=== PATIENT | female | born 1945 | race Caucasian/White ===

== ENCOUNTER 2018-10-04 08:53 | Observation (INO) ==
[2018-10-04] MEDS ORDERED: Naloxone 0.4 MG/ML INJ IVP PRN (11:03)
--- NOTE | 2018-10-04 11:10 | Cardiology History & Physical ---
<Jered Hall R - Last Filed: 10/04/18 11:07> Date of Encounter: 10/04/18 Time of Encounter: 11:05 Assessment and Plan (1) Chest pain Current Visit: Yes Status: Acute Per Cardiology: Developed continuous chest pain with significant ST depression and bigeminy during dobutamine stress echo of which could not be completed. Reports history of catheterization many years ago with no stents, however no records noted. Had negative stress echo a few years ago. Chest pain symptoms have somewhat improved. ECG improving as well. Per Dr. Carlson, EF remains preserved on echo during chest pain symptoms. Directly admitting for catheterization today. Labs pending. On aspirin, statin, beta sara at home-- will resume meds once med rec completed. Patient and ex- verbalized understanding and agreed with plan. The assessment and plan as outlined above was discussed with the patient and/or family members who expressed understanding and agreement. All questions were answered. Qualifiers: Qualified Code(s): R07.9 - Chest pain, unspecified History of Present Illness Chief complaint: CP HPI: Ms. Duke is a 72 year old female seen by Dr. Turner 08/10/2018 with a relevant past medical history of HTN, GERD, Parkinson's disease. Stress test ordered per Dr. Turner at that time. Patient seen today during stress test was ordered for stress echocardiogram with order being switched to dobutamine stress echo by Dr. Turner. Patient developed significant ST depression with bigeminy during Dobutamine stress echo. Patient did develop chest pain with peak of about 8 out of 10 with left arm pain as well and nausea. Patient did receive NC O2 and a total of 3 SL nitroglycerin with some relief to 6 out of 10. Systolic blood pressures remained stable. Dobutamine infusion discontinued-- of note did not achieve target heart rate and atropine was not given. Dr. Carlson notified and at bedside. EF remained preserved during chest pain per Dr. Carlson. Discussed with patient and ex- and agreeable to direct admission for catheterization today. Past Med Surg Social Fam HX - Past Medical History Attestation: Yes The following information was validated with the patient. Source: patient, old records reviewed, obtained from family Medical history: arthritis, cancer, GERD, hypertension, osteoporosis, other Additional medical history: Parkinsons Psychiatric history: depression - Past Surgical History Surgical History: cancer surgery, cholecystectomy, hysterectomy Additional surgical history: brain sx - Social History Smoking Status: Never smoker Smokeless Tobacco Status: No Alcohol use: none Drug use: none Medications and Allergies Atorvastatin [Lipitor] 40 mg PO HS 07/01/16 [History] Carbidopa/Levodopa [Carbidopa-Levodopa 25-100 Tab] 1 tab PO TID 07/01/16 [History] Enalapril Maleate [Vasotec] 2.5 mg PO DAILY 07/01/16 [History] Gabapentin [Neurontin] 300 mg PO BID 07/01/16 [History] Gluc/Louie-MSM#1/C/Madhu/Kody/Bor [Osteo Bi-Flex Caplet] 1 tab PO DAILY 07/01/16 [History] HydrOXYzine 10 mg PO DAILY PRN 07/01/16 [History] Omeprazole [PriLOSEC] 20 mg PO BIDAC 07/01/16 [History] Pramipexole [Mirapex] 1.5 mg PO TID 07/01/16 [History] Sertraline [Zoloft] 100 mg PO DAILY 07/01/16 [History] Tizanidine HCl 2 mg PO Q12H PRN 07/01/16 [History] HYDROcodone/Acet 5/325 mg [Pembroke 5-325 mg] 1 tab PO Q6H PRN 3 Days #7 tab 07/08/17 [Rx] Ondansetron ODT [Zofran ODT] 4 mg SL Q8HR PRN #21 tab.rapdis 11/25/17 [Rx] Sulfamethoxazole/Trimeth DS [Bactrim DS] 1 each PO BID #6 tablet 11/25/17 [Rx] Tamsulosin [Flomax] 0.4 mg PO DAILY #5 cap.er.24h 11/25/17 [Rx] Allergy/AdvReac Type Severity Reaction Status Date / Time Amoxicillin Allergy Rash Verified 07/08/17 08:52 pregabalin [From Lyrica] Allergy Rash Verified 07/08/17 08:52 All Systems Review: The remainder of the systems were reviewed and are negative - Cardiovascular Cardiovascular: as per HPI, chest pain at rest, radiating jaw, neck or arm pain - Gastrointestinal Gastrointestinal: nausea Physical Examination stable; stress lab systolic blood pressure 128/86 and heart rate 59. General: Conversant, No Apparent Distress HEENT: Atraumatic, Normocephaly, Mucus Membranes Moist Neck: No JVD, Normal carotid pulses Cardiac: Reg Rate and Rhythm, Normal S1 and S2, No Murmur Lungs: Normal Breath Sounds, No Wheeze, Rales, Rhonchi Neuro: Alert and responsive, No focal deficits noted Abdomen: Soft, Non-Tender Skin: No rashes noted on visualized skin Musculoskeletal: No Chest Wall Tenderness Extremities: No Clubbing, No Cyanosis, No Edema, Normal Pulses Results - Imaging and Cardiology Stress Test: pending - EKG Interpretation EKG results cardiology: personally reviewed <Shiloh Carlson - Last Filed: 10/04/18 12:33> Date of Encounter: 10/04/18 - Attending Attestation I examined this patient and my medical decision-making was reviewed with the [employer]. I agree with the documented findings, disposition and treatment plan as described. Ms. Duke presented today for an outpatient stress test. Patient developed chest pain symptoms with ECG changes during dobutamine stress echo. Stress images were not optimal due to failure to achieve target heart rate. No obvious SWMA during symptoms of active chest pain. Risk factors for CAD include HTN, HPL per medical records. Patient has Parkinsonism but is alert and oriented x3 competent to make decisions. Given chest pain symptoms, abnormal ECG changes during stress and risk factors, recommend hospital admission for [facility]. The R/B/A of proceeding were discussed with the patient. She expressed understanding and consented. Will need labs pre-cath. History of Present Illness HPI: Ms. Duke is a 72 year old female All Systems Review: The remainder of the systems were reviewed and are negative Physical Examination Vital Signs, Last 4 Hours Temp Pulse Resp BP Pulse Ox 10/04/18 11:33 97.7 F 60 16 112/73 98 Results 10/04/18 11:27 10/04/18 11:27 Lab Results 10/04/18 10/04/18 10/04/18 11:27 11:27 11:27 WBC 6.2 Hgb 12.1 Hct 38.6 Plt Count 162 INR 1.1 Sodium 140 Potassium 4.3 Chloride 104 Carbon Dioxide 29 BUN 16 Creatinine 0.67 Glucose 127 H Calcium 9.0 Troponin I 0.26 H*
[2018-10-04 11:40] LABS: Basophils % 0.5 %; Eosinophils # 0.2 K/mcL (0.0-0.6); Eosinophils % 3.1 %; Hematocrit 38.6 % (35.3-44.9); Hemoglobin 12.1 g/dL (11.5-15.4); Immature Granulocytes % 0.2 % (0-4); Lymphocytes # 2.1 K/mcL (0.6-4.6); Lymphocytes % 33.5 %; Mean Corpuscular HGB Conc 31.3 g/dL (31.6-35.5); Mean Corpuscular Hemoglobin 27.9 pg (28.0-33.3); Mean Corpuscular Volume 89.1 fL (83.0-100.0); Mean Platelet Volume 12.2 fL (9.4-12.4); Monocytes # 0.3 K/mcL (0.0-1.3); Monocytes % 5.5 %; Neutrophils # 3.6 K/mcL (1.6-8.9); Platelet Count 162 K/mcL (140-400); Red Blood Count 4.33 M/mcL (3.82-4.97); Red Cell Distribution Width 14.6 % (11.5-14.5); Segmented Neutrophils % 57.2 %
[2018-10-04 11:48] LABS: INR 1.1; Prothrombin Time 12.4 Seconds (9.4-12.1)
[2018-10-04 12:09] LABS: BUN/Creatinine Ratio 24 (6-26); Blood Urea Nitrogen 16 mg/dL (8-23); Carbon Dioxide 29 mEq/L (23-29); Chloride 104 mEq/L (98-107); Glucose 127 mg/dL (70-105); Osmolality,Calculated 293 (280-300); Potassium 4.3 mEq/L (3.5-5.1); Sodium 140 mEq/L (136-145); Troponin I 0.26 ng/mL (< 0.04); eGFR For Non-African Americans > 60 (> 60)
[2018-10-04] MEDS ORDERED: Nitroglycerin 25 MG/250 ML INFUS..BTL IVC SCH (12:30)
--- NOTE | 2018-10-04 12:30 | Event Note ---
Date of Encounter: 10/04/18 Time of Encounter: 12:30 - Cardiology Event Note Per RN, continues to have CP. Discussed with Dr. Carlson, will start IV NTG gtt and titrate to CP. C pending. Laboratory Tests 10/04/18 10/04/18 10/04/18 11:27 11:27 11:27 Hgb 12.1 Hct 38.6 INR 1.1 Creatinine 0.67 Est GFR (Non-Af Amer) > 60 Troponin I 0.26 H* Demand ischemia vs NSTEMI.
--- NOTE | 2018-10-04 12:41 | Pre-Sedation Evaluation ---
Pre-sedation evaluation - Pre-sedation checklist Date of procedure: 10/04/18 Procedure: [facility] Recent Vitals: Last Vital Signs Temp 97.7 F 10/04/18 11:33 Pulse 60 10/04/18 11:33 Resp 16 10/04/18 11:33 BP 112/73 10/04/18 11:33 Pulse Ox 98 10/04/18 11:33 H&P (including ROS) documented in medical record: Yes Previous reaction to sedatives/anesthetics: No Dietary Status: NPO after Midnight Airway Assessment: Patient can open mouth completely, TMJ function normal, Micrognathia (under-bite, receding chin) absent, Neck with adequate range of mot ion Dentition: No loose teeth or bridges, full dentition Possible difficult airway: No ASA Classification *see protocol: CLASS II-Mild systemic disease Plan of Care: Pt appropriate candidate for procedure/moderate/conscious sedation, Risks/benefits of procedure/sedation discussed w/ patient/family Cardiac Registry (Cardio Only) - Functional Capacity Functional Capacity: >=4 METS with symptoms - Clincal Frailty Scale Clinical Frailty Scale: Vulnerable
[2018-10-04] MEDS ORDERED: *HR* Midazolam HCl 2 MG/2 ML VIAL ONE (13:00)
[2018-10-04] MEDS ORDERED: *HR* FentaNYL (PF) 100 MCG/2 ML VIAL ONE (13:00)
[2018-10-04] MEDS ORDERED: ISOVUE-370 200 ML INFUS..BTL ONE (13:39)
[2018-10-04] MEDS ORDERED: Nitroglycerin 1,000 MCG/10 ML VIAL IV ONE (13:39)
[2018-10-04] MEDS ORDERED: Heparin 1,000 UNITS/500 mL 500 ML ONE (13:39)
[2018-10-04] MEDS ORDERED: *HR* Heparin 10,000 UNIT/10 ML VIAL ONE (13:39)
[2018-10-04] MEDS ORDERED: 0.9 % Sodium Chloride 1,000 ML ONE (13:39)
--- NOTE | 2018-10-04 13:41 | Event Note ---
Date of Encounter: 10/04/18 Time of Encounter: 13:40 - Cardiology Event Note Per discussion with Dr. Angi Jane, cath with no lesions or intervention performed. Discussed with Dr. Carlson, stress echo awaiting read. Recs to check echo. Will DC NTG gtt.
--- NOTE | 2018-10-04 13:41 | Invasive Diagnostic Lab Proc ---
Name: Silvia Duke Date of Study: 10/04/2018 Date: 1945 Ht: 63.0in Medical Record#: [id number] Age: 72 Wt: 165.35lb Gender: Female BSA: 1.78 Order #: [id number] BMI: 29.3 Physicians Procedure Physician: Mallika Jane MD, [facility] Referring MD: Referring MD: Staff Name Position Time In Sites, Leidy RT (R) Scrub 12:59 PM Guillermo Triplett RN Plate Stacker 12:59 PM Anel Higuera RN Monitor 12:59 PM Indications Indication Non-Stemi Procedures Performed Procedure L HRT ARTERY/VENTRICLE ANGIO Pre-Procedure Checklist Informed consent is complete signed and on chart. H&P is on chart. ID band is on and ID verified with patient. Patient NPO for procedure The procedure was described for the patient and questions were answered. Blood Pressure: 168/93 ECG is on chart. Rhythm: NSR Plan of Care Patient will tolerate the procedure without complications. Adequate level of comfort will be maintained. Hemodynamics will remain stable Patient will recover from procedure without complications. Respiratory function will be maintained. Cardiac rhythm will remain stable. Patient temperature will be maintained. Patient and/or family have verbalized understanding of the procedure. Patient Education Chief Complaint/Reason for Test: Cardiac Cath Developmental Category: Geriatric (65+ years) Developmentally Appropriate for Age: Yes Learning Barriers: None Education Needs: Procedure Education Method: Verbal Information Taught: Cardiac Cath Educational Evaluation: Able to repeat information Intravenous Access Time IV Size Location DC'd Fluid/Drip Rate Units RN 22g 1 " Peripheral-Lock On Arrival Lt Antecubital 0.9NaCl 25 ml/hr Anel Higuera RN Allergies Amoxicillin pregabalin Vital Signs Time BP (mmHg) HR (bpm) O2 Sat. RR (bpm) LOC 01:00 PM / % 5 = Fully awake and oriented or at pre-proc level 01:05 PM / % 5 = Fully awake and oriented or at pre-proc level 01:05 PM / % 4 = Oriented but drowsy 01:02 PM 182 / 100 59 97 % 14 01:06 PM 168 / 93 63 99 % 11 01:11 PM 139 / 83 59 97 % 14 01:16 PM 146 / 85 55 98 % 19 01:21 PM 159 / 95 58 98 % 18 01:26 PM 164 / 89 64 98 % 18 Procedural Medications Time Medication Dose Units Method Given By 01:00 PM Oxygen 2 L/min nasal cannula Guillermo Triplett RN 01:05 PM Oxygen 2 L/min nasal cannula Guillermo Triplett RN 01:05 PM Versed 1 mg Intravenous Guillermo Triplett RN 01:05 PM Fentanyl 25 mcg Intravenous Guillermo Triplett RN 01:13 PM Lidocaine 2% 19 ml Subcutaneous Mallika Jane MD, [facility] ASA Classification: CLASS II- Mild systemic disease (i.e. well-controlled diabetes, hypertension, asthma, cigarette smoking) Kerline Score Preprocedure Postprocedure Activity 2- Moves 4 extremities sustained head lift Activity Circulation 2- SBP +/= 20 points of pre-anesthetic level Circulation Consciousness 2- Awake and alert oriented x 3 Consciousness O2 Saturation 2- Able to maintain O2 satruation of 92% on room air O2 Saturation Respiratory 2- Able to deep breathe and cough well Respiratory Total Score 10 Total Score Contrast Agent: Isovue Diagnostic Contrast: 56 ml Total Contrast: 56 ml Fluoro Dose: 16 mGy Procedure Log Time Note Enter By 12:55 PM CathStat 12:59 PM Pt arrived to skill labor 2 at 12:59 tsites 12:59 PM Leidy Molina RT (R) Position: Scrub Time in: 12:59 tsites 12:59 PM Guillermo Triplett RN Position: Plate Stacker Time in: 12:59 tsites 12:59 PM Anel Higuera RN Position: Monitor Time in: 12:59 tsites 12:59 PM Patient charges- Angio tray pack, Navilyst 3mm J, Pulse Oximetry and ACIST tubing and transducer tsites 01:00 PM Case Delayed No tsites 01:00 PM Physician arrived 13:00 tsites 01:00 PM Meet and greet completed tsites 01:00 PM Sign in performed according to hospital policy. Informed consent was obtained. tsites 01:00 PM Procedure start 13:00 tsites 01:00 PM Time: 13:00 Oxygen on at 2 L/min per nasal cannula by Guillermo Triplett RN tsites 01:00 PM Time: 13:00 Patient comfortable and pain free: Yes tsites 01:00 PM Time: 13:00LOC: 5 = Fully awake and oriented or at pre-proc level tsites 01:00 PM Clinical Presentation: Non-STEMI tsites 01:00 PM Vitals capture started with the following parameters, Patient=Adult, Interval=5 min, Initial Hdjdnpfk=555 mmHg, Deflation Rate=5 mmHg, Cuff placed on Right Arm 01:00 PM Recorded ECG: HR=58 Condition=Condition 1 01:02 PM HR=59 bpm, TQTQ=399/100 mmhg, SpO2=97.0 %, Resp=14 B/min 01:05 PM Hair removed from procedure site in procedure lab using clippers. Bilateral groin prepped with Chloraprep by Guillermo Triplett RN, then patient was draped. Skin intact. kmavis 01:05 PM Time: 13:05 Oxygen on at 2 L/min per nasal cannula by Guillermo Trilpett RN kmavis :05 PM Time: 13:05 Patient comfortable and pain free: Yes kmavis :05 PM Time: 13:05LOC: 5 = Fully awake and oriented or at pre-proc level kmavis :05 PM Time: 13:05 Versed 1 mg Intravenous Given by Guillermo Triplett RN kmavis :05 PM Time: 13:05 Fentanyl 25 mcg Intravenous Given by Guillermo Triplett RN kmavis 01:06 PM HR=63 bpm, LNBK=363/93 mmhg, SpO2=99.0 %, Resp=11 B/min 01:08 PM ASA Class CLASS II- Mild systemic disease (i.e. well-controlled diabetes, hypertension, asthma, cigarette smoking) kmavis 01:11 PM HR=59 bpm, PUAS=153/83 mmhg, SpO2=97.0 %, Resp=14 B/min 01:11 PM Pressure channel 1 zeroed. 01:13 PM Time out was performed according to hospital policy. Conscious sedation and anesthesia was achieved (see medication log with in this report above) kmavis 01:14 PM Time: 13:13 19 ml Lidocaine 2% to right groin Subcutaneous Given by Mallika Jane MD, [facility] kmavis 01:15 PM Access obtained by percutaneous puncture. 5Fr 10cm Terumo Dukedom sheath placed in right Femoral artery. [id number] kmavis 01:15 PM 5Fr FL 4 catheter inserted over the wire [facility] kmavis 01:15 PM 0.035 145cm Navilyst 3mmJ wire [id number] kmavis 01:16 PM HR=55 bpm, TVIO=517/85 mmhg, SpO2=98.0 %, Resp=19 B/min 01:16 PM LCA angiography performed in multiple views. kmavis 01:16 PM Recorded Pressure: Ao, HR=52, Condition=Condition 1 (Aorta) Ao 126/72/95 01:18 PM Catheter removed kmavis 01:18 PM 5Fr FR 4 catheter inserted over the wire [facility] kmavis 01:18 PM RCA angiography performed in multiple views. kmavis 01:19 PM Recorded Pressure: Ao, HR=56, Condition=Condition 1 (Aorta) Ao 144/85/111 01:20 PM Time: 13:05LOC: 4 = Oriented but drowsy kmavis 01:20 PM Time: 13:05 Patient comfortable and pain free: Yes kmavis 01:20 PM Catheter removed avis 01:20 PM 5Fr Pigtail catheter inserted over the wire [facility] kmavis 01:21 PM HR=58 bpm, IRSU=406/95 mmhg, SpO2=98.0 %, Resp=18 B/min 01:22 PM Catheter crossed the aortic valve and was selectively placed in the left ventricle. Pressures recorded on pullback for left heart catheterization. avis :22 PM Pressure channel 1 zeroed. 01:22 PM Recorded Pressure: LV, HR=75, Condition=Condition 1 (Left Ventricle) LV 127/9/10 01:23 PM Recorded Pressure: LV, Ao, HR=70, Condition=Condition 1 (Left Ventricle) LV 121/14/27, (Aorta) Ao 122/77/98 01:23 PM Bolus angiogram of left Ventricle complete: 8 ml/sec for a total of 24 mls avis :23 PM Catheter removed avis 01:24 PM Coronary Dominance: right avis 01:24 PM Procedure completed at 13:24 10/04/2018 kmavis 01:24 PM Did you address ROHITH flow and Dominance? Yes avis :25 PM Sign out completed: Radiation Dose 106.27 mGy, 16.1 Gy/cm2 Fluoro Time: 2.5 Isovue 370 - 200ml contrast 56 ml given by Mallika Jane MD, [facility]. Complications: None. The patient was discharged out of the cardiovascular lab director in stable condition. Sedation minutes 20. Cardiac Rehab Consult needed: No. Confirmed administered medications: Yes avis 01:25 PM Isovue 370 - 200ml,1 Bottle(s) used. kmavis 01:26 PM Arterial sheath pulled, Mynx closure device used and was Successful [id number] S/N. kmavis 01:26 PM Estimated Blood Loss: minimal avis 01:26 PM Post ECG NSR avis 01:26 PM HR=64 bpm, DHVB=489/89 mmhg, SpO2=98.0 %, Resp=18 B/min 01:26 PM Post Blood Pressure 164/89 kmavis 01:26 PM Information taught Cardiac Cath and Mynx kmavis 01:27 PM Education needs Procedure, Plan of Care, and Disease Process kmavis 01:27 PM Learning barriers :None avis 01:27 PM Education Methods Verbal avis 01:27 PM Education evaluation Able to repeat information avis 01:27 PM Site status No bleeding/hematoma - Rt Groin as reported by Sites, Leidy RT (R) at 13:27 kmavis 01:27 PM Opsite applied avis 01:29 PM Report given to Tresa ESPINOSA Pt taken to E Room #18. 13:29 kmavis 01:29 PM Plavix, Effient or Brilinta given No avis 01:29 PM Delay to floor No kmavis 01:30 PM Patient out of room: 13:30 kmavis 01:30 PM Complications: None kmavi Complications Complication None None Hemodynamics Pressures Site Systolic/A Wave Diastolic/V Wave Mean AO 126 72 95 AO 144 85 111 LV 127 9 10 LV 121 14 27 AO 122 77 98 Post Procedure Information Blood Pressure: 164/89 mmHg Rhythm: NSR Post procedural instructions were given Closure Device Time Device Success/Fail 10/04/2018 1:30:00 PM MynxGrip Successful Site Checks Time Location Status Staff Sheath In? Note 01:27 PM Rt Groin No bleeding/hematoma Sites, Leidy RT (R) Pulses Time Site Pre-Procedure Post-Procedure Note Bilateral DP & PT 2+ Updated by Anel Higuera RN on 10/04/2018 1:35:50 PM electronically signed on 10/04/2018 1:36:26 PM with status of Final
[2018-10-04] MEDS: Carbidopa/Levodopa 25/100 TABLET PO SCH ×2 (15:35→22:09)
[2018-10-04] MEDS: GLUCOSAMINE HCL 500 MG PO SCH (17:18)
[2018-10-04] MEDS ORDERED: Perflutren Lipid Microsphere 1.3 ML in 0.9 % Sodium Chloride 8.7 ML IVP ONE (18:01)
[2018-10-04] MEDS: *HR* Heparin 5,000 UNIT/ML VIAL SQ SCH (18:28)
[2018-10-04] MEDS ORDERED: Budesonide/Formoterol 80/4.5 MDI IH PRN (22:00)
[2018-10-05] MEDS: *HR* Heparin 5,000 UNIT/ML VIAL SQ SCH (05:47)
[2018-10-05] MEDS: GLUCOSAMINE HCL 500 MG PO SCH (07:37)
[2018-10-05] MEDS: Carbidopa/Levodopa 25/100 TABLET PO SCH (07:37)
[2018-10-05] MEDS ORDERED: Propranolol LA (24 HR) 60 MG CAP.SA.24H PO SCH (09:00)
[2018-10-05] MEDS ORDERED: risperiDONE 0.25 MG TABLET PO SCH (09:00)
[2018-10-05 11:15] VITALS: BP 107/70
--- NOTE | 2018-10-05 14:30 | Discharge Summary ---
Date of Encounter: 10/05/18 Time of Encounter: 14:28 - Discharge Diagnosis (1) Chest pain Priority: Primary Status: Acute Qualifiers: Chest pain type: unspecified Qualified Code(s): R07.9 - Chest pain, unspecified - Hospital Course Hospital course: Ms. Duke is a 73 year old female with a relevant past medical history of HTN, GERD, Parkinson's disease that developed continuous chest pain with significant ST depression and bigeminy during dobutamine stress echo of which could not be completed yesterday and was admitted for [facility]. Troponin 0.26--unclear timing if before or after C. C Coronary arteries are angiographically normal. EF 65%. Cardiac rehab not warranted. TTE Technically sub-optimal due to poor echocardiographic windows. LVEF 60%. Not all segments were well visualized, but overall function is normal. Mild cLVH. Mild LVDD. Grossly normal RV structure and function. Unable to estimate RVSP due to lack of TR jet. No significant valvular dysfunction. RIght femoral access site healing well. No bleeding or hematoma. Mild ecchymosis. Pt denies chest pain today. PT evaluated pt and recommended SNF placement or if pt declines, 28/12 supervision at home. Pt and SO decline SNF. Will d/c home in stable condition. - Time Spent with Patient Total time spent providing and/or coordinating discharge services: Less than 30 minutes - Discharge Medications Prescriptions: Continued Sertraline [Zoloft] 100 mg PO DAILY Omeprazole [PriLOSEC] 20 mg PO BID Atorvastatin [Lipitor] 40 mg PO DAILY Pramipexole [Mirapex] 1 mg PO TID Carbidopa/Levodopa [Carbidopa-Levodopa 25-100 Tab] 1 tab PO TID Albuterol Sulfate [Albuterol Inhaler] 2 puff IH Q6H PRN PRN Reason: Shortness Of Breath Budesonide/Formoterol 80/4.5 [Symbicort 80/4.5] 2 puff IH BID PRN PRN Reason: Shortness Of Breath Glucosamine HCl 500 mg PO BIDWM Oxybutynin [Ditropan] 5 mg PO HS Propranolol HCl [Innopran Xl] 120 mg PO DAILY Polyethylene Glycol 3350 [Natura-Lax] 17 gm PO DAILY PRN PRN Reason: Constipation No Action risperiDONE [Risperidone] 0.25 mg PO DAILY Cartilage/Collagen/Bor/Hyalur [Move Free Ultra Tablet] 1 tab PO DAILY Home Medications: Atorvastatin [Lipitor] 40 mg PO DAILY 07/01/16 [History] Carbidopa/Levodopa [Carbidopa-Levodopa 25-100 Tab] 1 tab PO TID 07/01/16 [History] Omeprazole [PriLOSEC] 20 mg PO BID 07/01/16 [History] Pramipexole [Mirapex] 1 mg PO TID 07/01/16 [History] Sertraline [Zoloft] 100 mg PO DAILY 07/01/16 [History] Albuterol Sulfate [Albuterol Inhaler] 2 puff IH Q6H PRN 10/04/18 [History] Budesonide/Formoterol 80/4.5 [Symbicort 80/4.5] 2 puff IH BID PRN 10/04/18 [His tory] Cartilage/Collagen/Bor/Hyalur [Move Free Ultra Tablet] 1 tab PO DAILY 10/04/18 [History] Glucosamine HCl 500 mg PO BIDWM 10/04/18 [History] Oxybutynin [Ditropan] 5 mg PO HS 10/04/18 [History] Polyethylene Glycol 3350 [Natura-Lax] 17 gm PO DAILY PRN 10/04/18 [History] Propranolol HCl [Innopran Xl] 120 mg PO DAILY 10/04/18 [History] risperiDONE [Risperidone] 0.25 mg PO DAILY 10/04/18 [History] Allergies/Adverse Reactions: Allergy/AdvReac Type Severity Reaction Status Date / Time Amoxicillin Allergy "LOOSE Verified 10/04/18 12:54 CONTROL OF EVERYTHING" pregabalin [From Lyrica] Allergy "LOOSE Verified 10/04/18 12:54 CONTROL OF EVERYTHING" Date of admission: 10/04/18 11:16 Primary care physician: Boris Newman MD Consults: 10/04/18 12:31 Consult to Cardiac Rehabilitation-Phase1 [CONS] Routine Comment: Reason for Consult: CP, elevated trops Call Completed: No 10/05/18 09:34 Consult to Physical Therapy [CONS] Routine Comment: Evaluate, develop and implement POC Reason for Consult: Patient needs assistance with ambulation live home with sig other. Does patient have active BEDREST order?: No Is patient medically & hemodynamically stable?: Yes OT [Consult to Occupational Therapy] [CONS] Routine Comment: Evaluate, develop and implement POC Reason for Consult: Patient needs assistance with ambulation and lives with sig other Does patient have active BEDREST order?: No Is patient medically & hemodynamically stable?: Yes Discharging clinician: Wili Castillo Anticipated date of discharge: 10/05/18 Physical Examination Vital Signs, Last 4 Hours Temp Pulse Resp BP 10/05/18 11:11 98.1 F 70 12 107/70 Vital Signs Temp Pulse Resp BP Pulse Ox 10/05/18 11:11 98.1 F 70 12 107/70 10/05/18 06:53 97.8 F 66 18 140/79 95 10/05/18 03:38 98.3 F 67 18 149/85 93 10/05/18 00:17 98.1 F 60 21 117/82 94 10/04/18 19:25 98.1 F 71 17 117/67 91 10/04/18 16:00 58 18 145/84 94 10/04/18 15:30 59 16 145/84 94 10/04/18 15:00 58 16 123/75 93 10/04/18 14:45 58 16 140/70 93 Intake and Output 10/04/18 10/05/18 10/05/18 23:59 07:59 15:59 Intake Total 120 / 120 Output Total 100 / 100 Balance / 20 Intake: Oral 120 / 120 Output: Urine 100 / 100 Other: Meal Lunch Percent of Meal Consumed 10% Stool Size Large Stool Consistency liquid formed Stool Color Brown # Bowel Movements 1 Weight 82 kg Patient Weight 10/05/18 23:59 Weight 82 kg General: Conversant, No Apparent Distress HEENT: Atraumatic, Normocephaly, Mucus Membranes Moist Neck: No JVD, Normal carotid pulses Cardiac: Reg Rate and Rhythm, Normal S1 and S2, No Murmur Lungs: Normal Breath Sounds, No Wheeze, Rales, Rhonchi Neuro: Alert and responsive, No focal deficits noted Abdomen: Soft, Non-Tender Skin: No rashes noted on visualized skin Musculoskeletal: No Chest Wall Tenderness Extremities: No Clubbing, No Cyanosis, No Edema, Normal Pulses - Patient Status Disposition: Home, Self-Care Condition: Fair Functional capacity at discharge: uses cane/walker Overall status at discharge: patient is progressing back to baseline - Discharge Instructions Follow Up With: [facility] [place] [Primary Care Provider] - Additional Instructions: RISK FACTORS: STOP SMOKING: If you smoke, STOP. Smoking or tobacco use significantly increases your risk of heart disease because nicotine causes the arteries to narrow or constrict. It also causes fats to stick to the artery. Your chances of having a heart attack are greatly increased if you continue to smoke. For more information, call the education line for smoking cessation 2-710-THFPUHR EAT A LOW FAT/CHOLESTEROL/SODIUM DIET: This diet may help reduce your chances of having a heart attack. LIFTING: Avoid lifting anything more than 10 pounds for 5-7 days Prior to straining, laughing, sneezing and/or coughing, apply manual pressure directly over insertion site. ACTIVITY: You may walk or climb stairs as tolerated You can resume sexual activity as tolerated In general, you are encouraged to engage in a minimum of 30 minutes or more of moderate intensity physical activity, such as brisk walking, daily or at least 3-4 times weekly BATHING Do not submerge the site into water (bath tub, hot tub, swimming pool) for 1 week. This can be a source for infection into the blood stream. You may shower after 24 hours SITE CARE: After 24 hours, you may remove the dressing and leave the site open to air. Keep the site clean and dry. Clean gently and pat dry. You can expect bruising and tenderness that gradually resolve within a week or two. Return to work as instructed per your physician Resume driving as instructed per physician Keep all scheduled follow up appointments Resume medications as instructed IMPORTANT: If prescribed a Platelet Aggregation Inhibitor such as, Plavix, Brilinta or Effient: Duration of therapy is minimum one year These medications are often used in combination with Aspirin in prevention of future heart attacks Never discontinue unless consult with your [employer] STROKE (CVA) Risk factors for a stroke are: Age, cigarette smoking, diabetes, excessive alcohol consumption, family history, high blood pressure, overweight, physical inactivity, prior stroke, heart attack, diagnosis of carotid artery stenosis or other artery disease. Warning signs: Sudden numbness or weakness of the face, arm or leg; especially on one side of the body, sudden confusion, trouble speaking or understanding, sudden trouble seeing in one or both eyes, sudden trouble walking, dizziness, loss of balance or coordination, sudden severe headache with no cause. Call 911 or go to the Emergency Room. CONGESTIVE HEART FAILURE: If you have been diagnosed with Congestive Heart Failure (CHF) and your symptoms return, make an appointment with your physician Weigh yourself daily. Notify your physician if you have a weight gain of two or more pounds in one day or five or more pounds in one week. If you experience any difficulty breathing, please call 911 BLEEDING: Although the risk of bleeding is minimal, it can happen. If you have any bleeding from the site, apply firm pressure above the puncture site for 10-15 minutes. If the bleeding does not stop, continue manual pressure and call 911 Contact your physician if: You develop a fever greater than 101 degrees Fahrenheit Your site becomes reddened or has any drainage You have an increase in pain or burning at the site or if a large knot forms at the site. If you experience chest pain, shortness of breath, dizziness, or extreme tiredness, stop the activity and rest. Please notify your physicians office if you experience any of these symptoms and they are not relieved by rest please call 911! - Diet and Activity Activity: increase activity as tolerated Diet: advance to your usual diet
== END 2018-10-05 15:56 | disposition home or self-care (01) ==
LOC: 2NENU 08:53 → CARSER 08:53
PROVIDERS: ADMIT Internal Medicine Cardiovascular Disease; ATTEND Internal Medicine Cardiovascular Disease